=== PATIENT | female | born 1980 | race Caucasian/White ===

== ENCOUNTER 2017-08-15 08:15 | Emergency (ER) | payer BC ==
[~2017-08-15] VITALS: Ht 162.6 cm; Wt 52.6 kg
[2017-08-15] MEDS: KETOROLAC TROMETHAMINE 30 MG INJ IVP ONE (08:37)
[2017-08-15 08:40] LABS: *BILIRUBIN,URIN NEGATIVE (NEGATIVE); *BLOOD, URINE 2+ (NEGATIVE); *CLARITY,URINE SLIGHTLY CLOUDY (CLEAR); *COLOR,URINE YELLOW (YELLOW); *KETONES,URINE NEGATIVE (NEGATIVE); *PROTEIN,URINE NEGATIVE (NEGATIVE); *UROBILINOGEN,URINE 0.2 E.U./dl (NORMAL); LEUKOCYTE ESTERASE ,URINE 1+ (NEGATIVE); NITRITE, URINE NEGATIVE (NEGATIVE); UGLUCOSE NEGATIVE (NEGATIVE)
[2017-08-15] MEDS ORDERED: KETOROLAC TROMETHAMINE 30 MG INJ ONE (08:49)
[2017-08-15 08:58] LABS: *URINE HCG, QUAL NEGATIVE (NEGATIVE); BACTERIA,URINE FEW /HPF (NONE SEEN); CALCIUM OXALATE CRYSTALS,UR FEW /HPF (NONE SEEN); SQUAMOUS EPITHELIAL CELL,UR MODERATE /HPF (NONE SEEN); URINE AMORPHOUS PHOSPHATES MODERATE /HPF
[2017-08-15 09:02] LABS: BASOPHILS % (AUTO) 0.7 % (0.0-2.0); EOSINOPHILS # (AUTO) 0.1 K/uL (0.0-0.7); EOSINOPHILS % (AUTO) 1.9 % (0.0-7.0); HEMATOCRIT 43.1 % (31.2-41.9); HEMOGLOBIN 14.8 g/dL (10.9-14.3); LYMPHOCYTES # (AUTO) 1.9 K/uL (20.0-40.0); LYMPHOCYTES % (AUTO) 33.7 % (20.5-51.5); MEAN CORPUSCULAR HEMOGLOBIN 30.9 uug (24.7-32.8); MEAN CORPUSCULAR HGB CONC 34 g/dL (32.3-35.6); MEAN CORPUSCULAR VOLUME 90.3 fL (75.5-95.3); MONOCYTES # (AUTO) 0.3 K/uL (2.0-10.0); MONOCYTES % (AUTO) 5.9 % (0.0-11.0); NEUTROPHILS # (AUTO) 3.2 K/uL (1.8-8.9); NEUTROPHILS % (AUTO) 57.8 % (38.5-71.5); PLATELET COUNT (AUTO) 166 K/uL (179-408); RED BLOOD CELL COUNT(AUTO) 4.77 MIL/uL (3.63-4.92); WHITE BLOOD COUNT (AUTO) 5.6 K/uL (3.8-11.8)
[2017-08-15 09:20] LABS: CREATININE 0.6 mg/dL (0.6-1.3); POTASSIUM 3.8 mmol/L (3.5-5.1)
--- NOTE | 2017-08-15 09:20 | NUR ---
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
[2017-08-15 09:26] LABS: BILIRUBIN,DIRECT 0.1 mg/dL (0.0-0.2); BILIRUBIN,TOTAL 0.5 mg/dL (0.2-1.0)
[2017-08-15 09:33] VITALS: BP 102/70
--- NOTE | 2017-08-15 09:35 | NUR ---
Patient discharged to home in stable conditon. Written and verbal after care instructions given. Patient verbalizes understanding of instructions.
--- NOTE | 2017-08-15 09:35 | NUR ---
IV removed. Catheter intact and site benign. Pressure and 4x4 gauze applied to site. No bleeding noted.
== END 2017-08-15 09:36 | disposition home or self-care (01) ==
LOC: ER 08:15
DX: N39.0 Urinary tract infection, site not specified (principal); N83.202 Unspecified ovarian cyst, left side; Z87.442 Personal history of urinary calculi; Z88.0 Allergy status to penicillin; Z88.2 Allergy status to sulfonamides
CPT/HCPCS: 36415; 76700; 76856; 80048; 80076; 81001; 83690; 84703; 85025; 96374; 99285; A4663; J1885

== ENCOUNTER 2020-02-12 10:45 | Emergency (ER) | payer BC ==
[~2020-02-12] VITALS: Ht 162.6 cm; Wt 56.2 kg
--- NOTE | 2020-02-12 10:56 | NUR ---
LEN LI AT BEDSIDE FOR MSE.
[2020-02-12] MEDS ORDERED: SERT50TA PO (10:57)
[2020-02-12] MEDS ORDERED: TRAM50TA2 PO (10:57)
[2020-02-12] MEDS ORDERED: CEFD300C3 PO (10:57)
[2020-02-12] MEDS ORDERED: IV NORMAL SALINE 1000 ML BAG IV ONE (11:15)
[2020-02-12] MEDS ORDERED: KETOROLAC TROMETHAMINE 15 MG INJ IVP ONE (11:15)
[2020-02-12 11:30] LABS: BASOPHILS % (AUTO) 0.8 % (0.0-2.0); EOSINOPHILS # (AUTO) 0.2 K/uL (0.0-0.7); EOSINOPHILS % (AUTO) 3.6 % (0.0-7.0); HEMATOCRIT 43.2 % (31.2-41.9); HEMOGLOBIN 14.6 g/dL (10.9-14.3); LYMPHOCYTES # (AUTO) 2.3 K/uL (20.0-40.0); LYMPHOCYTES % (AUTO) 43.2 % (20.5-51.5); MEAN CORPUSCULAR HEMOGLOBIN 30.2 uug (24.7-32.8); MEAN CORPUSCULAR HGB CONC 34 g/dL (32.3-35.6); MEAN CORPUSCULAR VOLUME 89.7 fL (75.5-95.3); MONOCYTES # (AUTO) 0.4 K/uL (2.0-10.0); MONOCYTES % (AUTO) 7.2 % (0.0-11.0); NEUTROPHILS # (AUTO) 2.4 K/uL (1.8-8.9); NEUTROPHILS % (AUTO) 45.2 % (38.5-71.5); PLATELET COUNT (AUTO) 175 K/uL (179-408); RED BLOOD CELL COUNT(AUTO) 4.82 MIL/uL (3.63-4.92); WHITE BLOOD COUNT (AUTO) 5.2 K/uL (3.8-11.8)
[2020-02-12 11:31] LABS: CREATININE 0.8 mg/dL (0.6-1.3); POTASSIUM 3.6 mmol/L (3.5-5.1)
[2020-02-12 11:35] LABS: *BILIRUBIN,URIN NEGATIVE (NEGATIVE); *CLARITY,URINE CLEAR (CLEAR); *COLOR,URINE YELLOW (YELLOW); *KETONES,URINE NEGATIVE (NEGATIVE); *UROBILINOGEN,URINE 0.2 E.U./dl (NORMAL); LEUKOCYTE ESTERASE ,URINE NEGATIVE (NEGATIVE); NITRITE, URINE NEGATIVE (NEGATIVE); UGLUCOSE NEGATIVE (NEGATIVE)
[2020-02-12 11:36] LABS: *BLOOD, URINE NEGATIVE (NEGATIVE)
[2020-02-12 11:37] LABS: BILIRUBIN,DIRECT 0.2 mg/dL (0.0-0.2); BILIRUBIN,TOTAL 0.6 mg/dL (0.2-1.0); TOTAL PROTEIN, SERUM 7.3 g/dL (6.4-8.2)
[2020-02-12] MEDS ORDERED: KETOROLAC TROMETHAMINE 30 MG INJ ONE (11:39)
--- NOTE | 2020-02-12 11:41 | NUR ---
US TECH AT BEDSIDE. Addendum: 02/12/20 at 1151 by DAKIM W/ SILVIANO PEOPLES RN.
--- NOTE | 2020-02-12 12:14 | NUR ---
Patient discharged to home in stable condition. Written and verbal after care instructions given. Patient verbalizes understanding of instructions. Stressed follow up or return to ER for worsening s/s. ALL BELONGINGS W/ PT. PT SELF-AMBULATED W/O DIFFICULTY. 20G IV ACCESS IN LAC REMOVED PRIOR TO D/C - INNER CANNULA INTACT.
[2020-02-12 12:15] VITALS: BP 106/76
== END 2020-02-12 12:15 | disposition home or self-care (01) ==
LOC: ER 10:46
DX: R10.31 Right lower quadrant pain (principal); D69.6 Thrombocytopenia, unspecified; Z87.898 Personal history of other specified conditions
CPT/HCPCS: 36415; 76770; 76856; 80048; 80076; 81001; 84702; 85025; 87086; 96374; 99285; J1885; A4663; J7030

== ENCOUNTER 2020-08-31 12:44 | Emergency (ER) | payer BC ==
[~2020-08-31] VITALS: Ht 162.6 cm; Wt 56.2 kg
[~2020-08-31 12:44] MED LIST: CEFD300C3 PO; SERT50TA PO; TRAM50TA2 PO
[2020-08-31] MEDS: IBUPROFEN 600 MG TABLET PO ONE (13:18)
--- NOTE | 2020-08-31 14:09 | NUR ---
PATIENT WAS SEEN BY . [facility]ON[facility] WR[employer] AND [employer]OT APPLIED BY AMIE. DC AND FOLLOW UP INSTRUCTIONS GIVEN AND EXPLAINED TO PATIENT WHO STATES SHE UNDERSTANDS ALL INSTRUCTIONS
== END 2020-08-31 14:12 | disposition home or self-care (01) ==
LOC: ER 12:44
DX: S93.401A Sprain of unspecified ligament of right ankle, initial encounter (principal); W10.9XXA Fall (on) (from) unspecified stairs and steps, initial encounter; Y92.89 Other specified places as the place of occurrence of the external cause; Z88.2 Allergy status to sulfonamides; Z88.1 Allergy status to other antibiotic agents; Z88.0 Allergy status to penicillin
CPT/HCPCS: 73610; A4663

== ENCOUNTER 2020-12-10 12:02 | Emergency (ER) | payer BC ==
[~2020-12-10] VITALS: Ht 162.6 cm; Wt 56.7 kg
--- NOTE | 2020-12-10 12:15 | NUR ---
at bedside for assessment
[2020-12-10 12:30] LABS: *BILIRUBIN,URIN NEGATIVE (NEGATIVE); *BLOOD, URINE 2+ (NEGATIVE); *CLARITY,URINE CLEAR (CLEAR); *COLOR,URINE YELLOW (YELLOW); *KETONES,URINE NEGATIVE (NEGATIVE); *UROBILINOGEN,URINE 0.2 E.U./dl (NORMAL); LEUKOCYTE ESTERASE ,URINE NEGATIVE (NEGATIVE); NITRITE, URINE NEGATIVE (NEGATIVE); UGLUCOSE NEGATIVE (NEGATIVE)
[2020-12-10] MEDS ORDERED: IV NORMAL SALINE 1000 ML BAG IV ONE (12:30)
[2020-12-10] MEDS ORDERED: PANTOPRAZOLE SODIUM 40 MG VIAL IV ONE (12:30)
[2020-12-10] MEDS ORDERED: HYDROMORPHONE 1 MG/1 ML DISP.SYRIN IV ONE ×2 (12:30→13:45)
[2020-12-10] MEDS ORDERED: ONDANSETRON 4 MG/2 ML VIAL IV ONE ×2 (12:30→13:45)
[2020-12-10 12:31] LABS: *URINE HCG, QUAL NEG (NEGATIVE)
[2020-12-10] MEDS ORDERED: ONDANSETRON 4 MG/2 ML VIAL ONE ×2 (12:31→13:53)
[2020-12-10] MEDS ORDERED: PANTOPRAZOLE SODIUM 40 MG VIAL ONE (12:31)
[2020-12-10] MEDS ORDERED: HYDROMORPHONE 1 MG/1 ML DISP.SYRIN ONE ×2 (12:31→13:53)
[2020-12-10 12:41] LABS: BASOPHILS % (AUTO) 0.5 % (0.0-2.0); EOSINOPHILS # (AUTO) 0.2 K/uL (0.0-0.7); EOSINOPHILS % (AUTO) 2.1 % (0.0-7.0); HEMATOCRIT 44.6 % (31.2-41.9); HEMOGLOBIN 14.8 g/dL (10.9-14.3); LYMPHOCYTES # (AUTO) 1.9 K/uL (20.0-40.0); MEAN CORPUSCULAR HEMOGLOBIN 29.9 uug (24.7-32.8); MEAN CORPUSCULAR HGB CONC 33 g/dL (32.3-35.6); MONOCYTES # (AUTO) 0.3 K/uL (2.0-10.0); MONOCYTES % (AUTO) 3.6 % (0.0-11.0); NEUTROPHILS # (AUTO) 6.3 K/uL (1.8-8.9); NEUTROPHILS % (AUTO) 71.8 % (38.5-71.5); PLATELET COUNT (AUTO) 179 K/uL (179-408); RED BLOOD CELL COUNT(AUTO) 4.96 MIL/uL (3.63-4.92); WHITE BLOOD COUNT (AUTO) 8.7 K/uL (3.8-11.8)
[2020-12-10 12:47] LABS: CREATININE 0.8 mg/dL (0.6-1.3); POTASSIUM 4.2 mmol/L (3.5-5.1)
[2020-12-10 12:53] LABS: BILIRUBIN,DIRECT 0.1 mg/dL (0.0-0.2); BILIRUBIN,TOTAL 0.3 mg/dL (0.2-1.0); TOTAL PROTEIN, SERUM 7.2 g/dL (6.4-8.2)
--- NOTE | 2020-12-10 14:16 | NUR ---
Patient states she wants to be discharged and will arrnge her own transport, at bedside and states he will drive, MD Servin arranged with [facility] for [facility], all files sent with patient, Patient discharged in stable condition. Written and verbal after care instructions given. Patient verbalizes understanding of instructions. Stressed follow up or return to ER for worsening s/s.
[2020-12-10 17:32] LABS: BACTERIA,URINE FEW /HPF (NONE SEEN); SQUAMOUS EPITHELIAL CELL,UR FEW /HPF (NONE SEEN); WBC,URINE 0-3 /HPF (0-3)
[2020-12-10 17:33] LABS: CALCIUM OXALATE CRYSTALS,UR FEW /HPF (NONE SEEN); URINE AMORPHOUS URATE FEW /HPF
== END 2020-12-10 14:30 | disposition home or self-care (01) ==
LOC: ER 12:02
DX: K56.609 Unspecified intestinal obstruction, unspecified as to partial versus complete obstruction (principal); N20.0 Calculus of kidney; Z87.442 Personal history of urinary calculi; Z88.0 Allergy status to penicillin; Z88.2 Allergy status to sulfonamides; Z88.8 Allergy status to other drugs, medicaments and biological substances; Z20.822 Contact with and (suspected) exposure to COVID-19
CPT/HCPCS: 36415; 74176; 80048; 80076; 81001; 83690; 84703; 85025; 87426; 96361; 96374; 96375; 96376; 99285; C9113; J1170 ×2; J2405 ×2; U0003; A4663; J7030

== ENCOUNTER 2022-08-02 14:15 | Emergency (ER) | payer BC ==
[~2022-08-02] VITALS: Ht 162.6 cm; Wt 54.4 kg
--- NOTE | 2022-08-02 14:40 | NUR ---
Pt. walked to the ER with c/o right upper quadrant and flank pain, rated 9/10. Per patient, symptoms are similar to past kidney stones 4 months ago. Nausea, dyspnea upon inspiration, dysuria present per pt. Denies headache, dizziness. Seen by MARGARITO for MSE.
[2022-08-02] MEDS ORDERED: KETOROLAC TROMETHAMINE 15 MG INJ IM ONE (14:45)
[2022-08-02] MEDS ORDERED: ACETAMINOPHEN ES 500 MG TABLET PO ONE (14:45)
[2022-08-02] MEDS ORDERED: ONDANSETRON 4 MG/2 ML VIAL IV ONE (14:45)
[2022-08-02] MEDS ORDERED: IV NORMAL SALINE 1000 ML BAG IV ONE (14:45)
[2022-08-02] MEDS ORDERED: ACETAMINOPHEN ES 500 MG TABLET ONE (14:50)
[2022-08-02] MEDS ORDERED: ONDANSETRON 4 MG/2 ML VIAL ONE (14:51)
[2022-08-02 14:56] LABS: HEMATOCRIT 43.2 % (31.2-41.9); MEAN CORPUSCULAR HEMOGLOBIN 32.2 uug (24.7-32.8); MEAN CORPUSCULAR VOLUME 96.8 fL (75.5-95.3); PLATELET COUNT (AUTO) 185 K/uL (179-408)
[2022-08-02 15:06] LABS: *BILIRUBIN,URIN NEGATIVE (NEGATIVE); *CLARITY,URINE CLEAR (CLEAR); *COLOR,URINE YELLOW (YELLOW); *KETONES,URINE NEGATIVE (NEGATIVE); *URINE HCG, QUAL NEG (NEGATIVE); *UROBILINOGEN,URINE 0.2 E.U./dl (NORMAL); LEUKOCYTE ESTERASE ,URINE TRACE (NEGATIVE); NITRITE, URINE NEGATIVE (NEGATIVE); UGLUCOSE NEGATIVE (NEGATIVE)
[2022-08-02 15:06] LABS: CREATININE 0.7 mg/dL (0.6-1.3); POTASSIUM 4.1 mmol/L (3.5-5.1)
[2022-08-02 15:07] LABS: *BLOOD, URINE TRACE (NEGATIVE)
[2022-08-02] MEDS ORDERED: KETOROLAC TROMETHAMINE 15 MG INJ ONE (15:11)
[2022-08-02 15:17] LABS: BILIRUBIN,DIRECT 0.1 mg/dL (0.0-0.2); BILIRUBIN,TOTAL 0.4 mg/dL (0.2-1.0); TOTAL PROTEIN, SERUM 7.3 g/dL (6.4-8.2)
[2022-08-02 16:46] LABS: BACTERIA,URINE NONE SEEN /HPF (NONE SEEN); MUCUS,URINE FEW /LPF (0-FEW); SQUAMOUS EPITHELIAL CELL,UR FEW /HPF (NONE SEEN)
[2022-08-02] MEDS ORDERED: HYDR-3974 PO (16:54)
[2022-08-02] MEDS ORDERED: ONDA4TAB5 PO (16:54)
--- NOTE | 2022-08-02 17:06 | NUR ---
Patient discharged to home in stable condition. Written and verbal after care instructions given. Patient verbalizes understanding of instructions. Stressed follow up or return to ER for worsening s/s.
[2022-08-02 17:07] VITALS: BP 119/85
== END 2022-08-02 17:06 | disposition home or self-care (01) ==
LOC: ER 14:15
DX: R10.11 Right upper quadrant pain (principal); Z87.442 Personal history of urinary calculi; R10.12 Left upper quadrant pain; Z88.0 Allergy status to penicillin; Z88.2 Allergy status to sulfonamides
CPT/HCPCS: 99284; 96374; 76700; 71045; 96361; 96375; 80076; 80048; 81001; 84703; 83690; 85025; 36415; J1885; J2405; J7040; A4663; A9150